=== PATIENT | female | born 1960 | race Caucasian/White ===

== ENCOUNTER 2022-11-08 17:25 | Emergency (ER) | payer OTHER ==
[~2022-11-08] VITALS: Ht 170.2 cm; Wt 92.1 kg
[~2022-11-08 17:25] MED LIST: ALBU-118 IH; GLIM4TAB; GLU500 PO
[2022-11-08 17:44] VITALS: BP 120/77
--- NOTE | 2022-11-08 17:49 | NUR ---
AMBULATED TO ER BED 3
--- NOTE | 2022-11-08 18:08 | NUR ---
PT C/O CHAVEZ X 3 DAYS WORSENED TODAY W/NAUSEA AND DIZZINESS. SAFETY MAINTAINED.
[2022-11-08] MEDS ORDERED: SUMAtriptan succinate 50 MG TAB PO ONE (18:55)
[2022-11-08] MEDS ORDERED: NACL 0.9% 1,000 ML IV ONE (18:55)
[2022-11-08] MEDS ORDERED: KETOROLAC 30 MG/ML VIAL IVP ONE (18:55)
[2022-11-08] MEDS ORDERED: METOCLOPRAMIDE 10 MG/2 ML INJ VIAL IVP ONE (18:55)
--- NOTE | 2022-11-08 19:28 | NUR ---
SBAR GIVEN TO
[2022-11-08] MEDS ORDERED: METO-486 PO (19:38)
[2022-11-08] MEDS ORDERED: IBUP-2213 PO (19:38)
--- NOTE | 2022-11-08 19:48 | NUR ---
Dr. Valle explained results and treatment plans.
[2022-11-08 20:03] VITALS: BP 117/64
--- NOTE | 2022-11-08 20:03 | NUR ---
Patient discharged with v/s stable. Written and verbal after care instructions given and explained. Patient alert, oriented and verbalized understanding of instructions. Ambulatory with steady gait. All questions addressed prior to discharge. ID band removed. Patient advised to follow up with PMD. Rx of Ibuprofen and Reglan given. Patient educated on indication of medication including possible reaction and side effects. Opportunity to ask questions provided and answered.
== END 2022-11-08 20:03 | disposition home or self-care (01) ==
LOC: MED 17:25
DX: G43.909 Migraine, unspecified, not intractable, without status migrainosus (principal); J45.909 Unspecified asthma, uncomplicated; E11.9 Type 2 diabetes mellitus without complications; Z88.0 Allergy status to penicillin; Z79.4 Long term (current) use of insulin; Z79.899 Other long term (current) drug therapy
CPT/HCPCS: 96374; 96375; 99284; J1885; J2765; J7030